=== PATIENT | female | born 1990 | race Caucasian/White ===

== ENCOUNTER 2017-09-18 20:12 | Emergency (ER) | payer MEDICAID ==
[~2017-09-18] VITALS: Ht 162.6 cm; Wt 33.0 kg
[2017-09-18 20:20] VITALS: BP 125/84
[2017-09-18 20:53] LABS: URINE HCG POSITIVE (NEG)
[2017-09-18 20:57] LABS: CLARITY,URINE CLEAR (Clear); COLOR,URINE YELLOW (Yellow); GLUCOSE, URINE NEGATIVE (Neg); KETONES,URINE NEGATIVE (Neg); LEUKOCYTE ESTERASE ,URINE NEGATIVE (Neg); NITRITES, URINE NEGATIVE (Neg); OCCULT BLOOD,URINE NEGATIVE (Neg); PH,URINE 5.5 (4.8-8.0); PROTEIN,URINE TRACE mg/dl (Neg); UROBILINOGEN,URINE 0.2 E.U/dL (0.2-1.0)
[2017-09-18 21:00] LABS: UA COLLECTION TYPE CLN CATCH MIDSTREAM
[2017-09-18 21:04] LABS: RBC,URINE 0-2 /HPF (0-2); WBC,URINE 0-4 /HPF (0-4)
[2017-09-18 21:05] LABS: BACTERIA,URINE FEW /HPF (Neg); SQUAMOUS EPITHELIAL CELL,UR FEW /LPF (FEW)
[2017-09-18 21:07] LABS: MUCUS STRANDS FEW /LPF (Neg)
[2017-09-18 21:50] LABS: BASOPHILS % (AUTO) 0.4 % (0-1); EOSINOPHILS # (AUTO) 0.3 X10'3 (0-0.9); EOSINOPHILS % (AUTO) 3.1 % (0-6); HEMATOCRIT 32.4 % (35.0-45.0); HEMOGLOBIN 10.9 g/dl (12.0-16.0); LYMPHOCYTES # (AUTO) 3.4 X10'3 (1.1-4.8); MEAN CORPUSCULAR HGB CONC 33.8 % (33.0-36.5); MEAN CORPUSCULAR VOLUME 88.6 FL (78-98); MEAN PLATELET VOLUME 7.5 FL (7.4-10.4); MONOCYTES # (AUTO) 0.6 X10'3 (0-0.9); MONOCYTES % (AUTO) 7.5 % (2-12); NEUTROPHILS # (AUTO) 4.2 X10'3 (1.8-7.7); PLATELET COUNT 223 X10'3 (140-440); RED BLOOD COUNT 3.66 X10'6 (4.20-5.60); RED CELL DISTRIBUTION WIDTH 13.7 % (11.5-14.5); WHITE BLOOD COUNT 8.5 X10'3 (4.5-11.0)
[2017-09-18] MEDS ORDERED: PERM60CR19 TP (22:45)
[2017-09-18] MEDS ORDERED: PREN-16 PO (22:45)
[2017-09-18] MEDS ORDERED: ONDA4TAB9 PO (22:48)
== END 2017-09-18 23:18 | disposition home or self-care (01) ==
LOC: ER 20:13
DX: O26.891 Other specified pregnancy related conditions, first trimester (principal); R10.9 Unspecified abdominal pain; F17.200 Nicotine dependence, unspecified, uncomplicated; F12.10 Cannabis abuse, uncomplicated; Z3A.01 Less than 8 weeks gestation of pregnancy
CPT/HCPCS: 36415; 76801; 81001; 81025; 84702; 85025; 86900; 86901; 99285

== ENCOUNTER 2022-01-06 03:23 | Emergency (ER) | payer MEDICAID ==
[~2022-01-06] VITALS: Ht 162.6 cm; Wt 54.5 kg
[~2022-01-06 03:23] MED LIST: NALO4SPR BOTHNARES; PREN-16 PO
[2022-01-06] MEDS ORDERED: NALO4SPR BOTHNARES (03:31)
[2022-01-06 04:45] LABS: CLARITY,URINE CLEAR (Clear); COLOR,URINE YELLOW (Yellow); GLUCOSE, URINE 100 mg/dl (Neg); KETONES,URINE NEGATIVE (Neg); LEUKOCYTE ESTERASE ,URINE TRACE (Neg); NITRITES, URINE NEGATIVE (Neg); OCCULT BLOOD,URINE NEGATIVE (Neg); PROTEIN,URINE 30 mg/dl (Neg); UROBILINOGEN,URINE 0.2 E.U/dL (0.2-1.0)
[2022-01-06 04:46] LABS: UA COLLECTION TYPE CLN CATCH MIDSTREAM; URINE HCG NEGATIVE (NEG)
[2022-01-06 04:52] LABS: BACTERIA,URINE 1+ /HPF (Neg); RBC,URINE 0-2 /HPF (0-2)
[2022-01-06 04:53] LABS: SQUAMOUS EPITHELIAL CELL,UR MODERATE /LPF (FEW)
[2022-01-06 04:57] LABS: URINE AMPHETAMINE SCREEN POSITIVE (Neg); URINE BARBITUATE SCREEN NEGATIVE (Neg); URINE BENZODIAZEPINES SCREEN NEGATIVE (Neg); URINE CANNABINOID SCREEN POSITIVE (Neg); URINE COCAINE SCREEN NEGATIVE (Neg); URINE METHADONE SCREEN NEGATIVE (Neg); URINE OPIATE SCREEN NEGATIVE (Neg); URINE PHENCYCLIDINE SCREEN NEGATIVE (Neg)
[2022-01-06 05:57] VITALS: BP 141/70
== END 2022-01-06 10:41 | disposition home or self-care (01) ==
LOC: ER 03:24
DX: T40.601A Poisoning by unspecified narcotics, accidental (unintentional), initial encounter (principal); R41.82 Altered mental status, unspecified; F20.9 Schizophrenia, unspecified; F12.10 Cannabis abuse, uncomplicated; Z79.899 Other long term (current) drug therapy; Y92.89 Other specified places as the place of occurrence of the external cause
CPT/HCPCS: 70450; 72125; 80305; 81001; 81025; 87088; 93005; 99285; C1758; A4615

== ENCOUNTER 2023-04-08 20:34 | Emergency (ER) | payer MEDICAID ==
[~2023-04-08] VITALS: Ht 160 cm; Wt 50.0 kg
--- NOTE | 2023-04-08 21:43 | NUR ---
PT REFUSED BLOOD DRAW, PT EDUCATED ON IMPORTANCE OF LAB TEST PT REFUSED.
[2023-04-08] MEDS ORDERED: NALO4SPR BOTHNARES (22:38)
--- NOTE | 2023-04-08 23:05 | NUR ---
provider aware of pt hr and pt still ok to d/c
[2023-04-08 23:06] VITALS: BP 135/94; PULSE 115; RESP 16; TEMP 99; O2SAT 100
== END 2023-04-08 23:04 | disposition home or self-care (01) ==
LOC: ER 20:36
DX: T40.601A Poisoning by unspecified narcotics, accidental (unintentional), initial encounter (principal); F20.9 Schizophrenia, unspecified; F17.210 Nicotine dependence, cigarettes, uncomplicated; F12.90 Cannabis use, unspecified, uncomplicated; Z72.89 Other problems related to lifestyle; Z79.899 Other long term (current) drug therapy; Y92.89 Other specified places as the place of occurrence of the external cause
CPT/HCPCS: 93005; 99283

== ENCOUNTER 2023-09-24 16:29 | Emergency (ER) | payer MEDICAID ==
[~2023-09-24] VITALS: Ht 162.6 cm; Wt 45.5 kg
[2023-09-24] MEDS: normal saline 1000ML IV soln IVB ONE (17:05)
[2023-09-24] MEDS ORDERED: NALO4SPR BOTHNARES (18:26)
[2023-09-24 20:40] VITALS: BP 110/73; PULSE 91; RESP 15; TEMP 98.8; O2SAT 99
== END 2023-09-24 20:45 | disposition home or self-care (01) ==
LOC: ER 16:29
DX: T40.601A Poisoning by unspecified narcotics, accidental (unintentional), initial encounter (principal); F12.90 Cannabis use, unspecified, uncomplicated; Z79.899 Other long term (current) drug therapy; Y92.89 Other specified places as the place of occurrence of the external cause
CPT/HCPCS: 96360; 99284; J7030

== ENCOUNTER 2023-10-05 12:21 | Emergency (ER) | payer MEDICAID | END 2023-10-05 14:14 | disposition left against medical advice (07) | LOC: ER 12:21 | DX: F11.20 Opioid dependence, uncomplicated (principal); Z53.21 Procedure and treatment not carried out due to patient leaving prior to being seen by health care provider ==

== ENCOUNTER 2023-12-10 22:12 | Emergency (ER) | payer MEDICAID ==
[~2023-12-10] VITALS: Ht 162.6 cm; Wt 52.0 kg
[2023-12-10] MEDS: normal saline 1000ML IV soln IVB ONE ×2 (22:44→23:34)
[2023-12-10 22:50] LABS: BASOPHILS # (AUTO) 0.1 X10'3 (0-0.2); EOSINOPHILS # (AUTO) 0.2 X10'3 (0-0.9); EOSINOPHILS % (AUTO) 3.5 % (0-6); HEMATOCRIT 26.6 % (35.0-45.0); HEMOGLOBIN 8.2 g/dl (12.0-16.0); LYMPHOCYTES # (AUTO) 3.4 X10'3 (1.1-4.8); LYMPHOCYTES % (AUTO) 48.8 % (21-51); MEAN CORPUSCULAR HGB CONC 30.6 g/dL (33.0-36.5); MEAN CORPUSCULAR VOLUME 68.4 FL (78-98); MEAN PLATELET VOLUME 7.2 FL (7.4-10.4); MONOCYTES # (AUTO) 0.5 X10'3 (0-0.9); MONOCYTES % (AUTO) 7.7 % (2-12); NEUTROPHILS # (AUTO) 2.7 X10'3 (1.8-7.7); PLATELET COUNT 330 X10'3 (140-440); RED BLOOD COUNT 3.89 X10'6 (4.20-5.60); RED CELL DISTRIBUTION WIDTH 19.8 % (11.5-14.5)
[2023-12-10 23:07] LABS: HCG SERUM QL NEGATIVE
[2023-12-10 23:09] LABS: ALBUMIN 3.2 G/DL (3.4-5.0); ANION GAP 6 (8-16); BLOOD UREA NITROGEN 13 MG/DL (7-18); BUN/CREATININE RATIO 11.1 (10.0-20.0); CALCIUM 8.9 MG/DL (8.5-10.1); CHLORIDE 103 MMOL/L (99-107); CREATININE 1.17 MG/DL (0.40-0.90); GLUCOSE 150 MG/DL (70-104); MAGNESIUM 1.9 MG/DL (1.5-2.4); POTASSIUM 3.3 MMOL/L (3.5-5.1); SODIUM 134 MMOL/L (135-145); TOTAL CARBON DIOXIDE 24.9 MMOL/L (24-32); eCRCL 56 ML/MIN; eGFR 53 ML/MIN
[2023-12-10 23:10] LABS: ETHANOL < 10 MG/DL (<10)
[2023-12-10 23:25] LABS: PLATELET ESTIMATE NORMAL
[2023-12-10 23:32] LABS: ANISOCYTOSIS 2+; ELLIPTOCYTES 1+; HYPOCHROMASIA 2+; MICROCYTOSIS 2+; POLYCHROMASIA FEW
[2023-12-10 23:33] LABS: SCHISTOCYTES FEW; TEAR DROP CELLS FEW
[2023-12-10] MEDS: potassium Cl 20 mEq SR tablet PO ONE (23:34)
[2023-12-10] MEDS: magnesium oxide 400mg tablet PO ONE (23:34)
[2023-12-11 00:08] VITALS: BP 128/92; PULSE 91; RESP 13; TEMP 98; O2SAT 100
[2023-12-11 00:17] LABS: BILIRUBIN,URINE NEGATIVE (Neg); CLARITY,URINE CLOUDY (Clear); COLOR,URINE YELLOW (Yellow); GLUCOSE, URINE NEGATIVE (Neg); KETONES,URINE NEGATIVE (Neg); LEUKOCYTE ESTERASE ,URINE NEGATIVE (Neg); NITRITES, URINE POSITIVE (Neg); OCCULT BLOOD,URINE LARGE (Neg); PROTEIN,URINE 100 mg/dl (Neg); UROBILINOGEN,URINE 0.2 E.U/dL (0.2-1.0)
[2023-12-11 00:18] LABS: UA COLLECTION TYPE NON-SPECIFIED
[2023-12-11 00:23] LABS: BACTERIA,URINE 4+ /HPF (Neg); MUCUS STRANDS NONE SEEN /LPF (Neg); SQUAMOUS EPITHELIAL CELL,UR MODERATE /LPF (FEW); WBC CLUMPS,URINE FEW /HPF (NEGATIVE)
[2023-12-11 00:41] LABS: URINE AMPHETAMINE SCREEN POSITIVE (Neg); URINE BARBITUATE SCREEN NEGATIVE (Neg); URINE BENZODIAZEPINES SCREEN NEGATIVE (Neg); URINE CANNABINOID SCREEN NEGATIVE (Neg); URINE COCAINE SCREEN NEGATIVE (Neg); URINE METHADONE SCREEN NEGATIVE (Neg); URINE OPIATE SCREEN NEGATIVE (Neg); URINE PHENCYCLIDINE SCREEN NEGATIVE (Neg)
== END 2023-12-11 00:10 | disposition home or self-care (01) ==
LOC: ER 22:12
DX: T40.411A Poisoning by fentanyl or fentanyl analogs, accidental (unintentional), initial encounter (principal); F15.10 Other stimulant abuse, uncomplicated; F12.90 Cannabis use, unspecified, uncomplicated; Z79.899 Other long term (current) drug therapy; Y92.89 Other specified places as the place of occurrence of the external cause
CPT/HCPCS: 36415; 80048; 80305; 80320; 81001; 82948; 83735; 84484; 84703; 85008; 85025; 87077; 87088; 87186; 93005; 96360; 99284; J7030; 81003

== ENCOUNTER → 2024-02-19 | Emergency (ER) | payer MEDICAID | END | disposition left against medical advice (07) | LOC: ER 13:17 | DX: T40.411A Poisoning by fentanyl or fentanyl analogs, accidental (unintentional), initial encounter (principal); F20.9 Schizophrenia, unspecified; F12.90 Cannabis use, unspecified, uncomplicated; Z79.899 Other long term (current) drug therapy; Y92.89 Other specified places as the place of occurrence of the external cause | CPT/HCPCS: 99283 ==

== ENCOUNTER 2024-08-01 18:50 | Emergency (ER) | payer MEDICAID ==
[~2024-08-01] VITALS: Ht 160 cm; Wt 43.2 kg
[2024-08-01 20:49] VITALS: BP 159/103; PULSE 111; RESP 18; TEMP 98.1; O2SAT 98
== END 2024-08-01 20:40 | disposition home or self-care (01) ==
LOC: ER 18:51
DX: T40.411A Poisoning by fentanyl or fentanyl analogs, accidental (unintentional), initial encounter (principal); F20.9 Schizophrenia, unspecified; F12.90 Cannabis use, unspecified, uncomplicated; Y92.89 Other specified places as the place of occurrence of the external cause
CPT/HCPCS: 99284

== ENCOUNTER 2024-12-15 04:12 | Emergency (ER) | payer MEDICAID ==
[~2024-12-15] VITALS: Ht 152.4 cm; Wt 48.0 kg
[2024-12-15 04:13] VITALS: TEMP 97.5
--- NOTE | 2024-12-15 05:15 | Physician Documentation ---
History of Present Illness ~ Chief Complaint: Overdose Stated Complaint: OD Time Seen by MD: 05:11 OK to notify your PCP?: Yes Primary Medical Doctor: None Source: patient, RN/MD, EMS, RN notes reviewed, EMS notes reviewed, old records Mode of Arrival: EMS, Ambulatory Exam Limitations: no limitations HPI 34 year old female seen in bed 06 presents to the emergency department via EMS for complaints of an overdose. EMS gave narcan 8mg en route to the hospital with a positive response. Per EMS patient overdosed on fentanyl. A bystander called 911 on patient and dumped water on them due to the patient being unresponsive. When asked about her symptoms patient complains of slight abdominal pain and unrelated scratches on her face. Medication Reconciliation Allergies: Coded Allergies: No Known Allergies (Unverified , 08/01/24) Scheduled Naloxone HCl (Narcan), 1 SPRAYS BOTHNARES ONCE Naloxone HCl (Narcan), 1 SPRAYS BOTHNARES ONCE Naloxone HCl (Narcan), 1 SPRAYS BOTHNARES ONCE Naloxone HCl (Narcan), 1 SPRAYS BOTHNARES ONCE Vit W-Ca,Fe,FA(<1 mg) ( Formula), 1 TAB PO DAILY Sulfamethoxazole/Trimethoprim (Bactrim Ds Tablet), 1 TAB PO Q12H Past Medical History Past Medical History: Cellulitis, Schizophrenia Past Surgical History: noncontributory Alcohol Use: Occasionally Drug Use: marijuana, heroin, other Lives with: Family Lives In: Home Review of Systems All Other Systems at this time: Reviewed and Negative ROS As stated above in the HPI, otherwise all systems are reviewed and negative. Physical Exam Vital Signs: RN Vital Signs have been reviewed: Yes, Temperature: 97.5, Source: Temporal, Heart Rate: 97, Respiratory Rate: 16, BP: 173/110, Pulse Oximetry: 100, Weight: 48.000 Oxygen Flow Rate: 0 Pulse Oximetry Reflects: adequate oxygenation Physical Exam General: [place] to body throughout with ulcerations to back and neck. Right ear has crustings. The patient is well developed, well nourished, nontoxic appearing and is in no acute distress. Skin: [place], warm and dry with no rashes. HEENT: Head was normocephalic and atraumatic. Eyes - pupils equal, round, reactive to light and accommodation. Extraocular movements were intact. Conjunctivae were nonicteric. Ears - bilateral tympanic membranes were normal. The mouth and oropharynx were clear with moist mucous membranes. There were no pharyngeal exudates or erythema. Neck: Supple and nontender. There was no jugular venous distention, lymphadenopathy, thyromegaly or masses. Chest: Clear to auscultation bilaterally without wheezes, rales or rhonchi. No accessory muscle use. No dullness to percussion. Heart: Rate regular and rhythmic. S1, S2. No murmurs. Palpation of the chest wall was normal. No rubs or thrills. Abdomen: Soft, nontender and nondistended. Positive bowel sounds. No guarding or rebound. No hepatosplenomegaly or palpable masses. Extremities: No cyanosis, clubbing or edema. The patient moves all extremities. Pulses were equal and symmetric. Neurologic: Cranial nerves II-XII were intact. Sensation was intact to light touch throughout. Motor strength was 5/5 in all four extremities. Deep tendon reflexes were intact in both upper and lower extremities. Psychologic: The patient was oriented to person, place and time. The patient demonstrated appropriate judgement and insight. Progress Results/Orders Reviewed/noted all lab results: Yes Results/Orders Completed Orders - RICARDO JAIN MD Rifampin Capsule (Rifampin Capsule) (12/15/24 05:20) Sulfamethox/Trimetho. Ds Tab (Septra Ds (12/15/24 05:20) Medications Received in ER Medications (Trade) Dose Ordered Sig/Danica Route PRN Reason Start Time Stop Time Status Last Admin Dose Admin (rifampin capsule) 300 mg STAT ONCE PO 12/15/24 05:20 12/15/24 05:31 DC 12/15/24 05:37 300 MG (Septra DS tab) 2 tab ONCE ONCE PO 12/15/24 05:20 12/15/24 05:21 DC 12/15/24 05:38 2 TAB Vital Signs 12/15/24 12/15/24 12/15/24 04:13 04:27 05:28 Temp 97.5 Pulse 97 102 Resp 16 16 14 B/P (MAP) 173/110 147/87 (107) Pulse Ox 100 98 O2 Flow Rate 0 0 Re-Evaluation Re-Evaluation : Re-Evaluation: Unchanged Progress Patient was seen and examined. Patient is given reassurance. Patient presents with a multiple pock castillo clearly homeless disheveled dirty with some crusty ears and discharge. Patient is supposedly overdose but she does not show any signs of any withdrawal symptoms making me wonder if she really did received Narcan or not. Nevertheless she has been observed for over an hour there was no respiratory depression or any other complaints. She is sleeping she was given food and was discharged home prior to that she was given rifampin and double dose Bactrim. She was given both bacteria suicidal and bacterial static antibiotics because of the probability of poor compliance. Patient was then discharged home. Medical Decision Making Additional info obtained from: old records Differential Dx:Considerations: Include: Alcohol abuse, Anxiety, Bipolar disorder, Conversion disorder, Delirium, Depression, Personality disorder, Schizophrenia, Substance abuse, Other Departure Time of Disposition: 05:18 Disposition: HOME / SELF CARE / HOMELESS Impression: Primary Impression: Polysubstance drug abuse Additional Impressions: Overdose of fentanyl Cellulitis of right ear Condition: Stable Discharge Instructions: Overdose, Adult Referrals: NO PRIMARY CARE PROVIDER (PCP) Prescriptions Sulfamethoxazole/Trimethoprim (Bactrim Ds Tablet) 800 Mg-160 Mg Tablet 1 TAB PO Q12H for 10 Days, #20 TAB Prov: RICARDO JAIN MD 12/15/24 Education Educated: Patient Educated regarding: diagnosis, treatment, prognosis, need for follow up Signature Scribe Signature: Scribed for Ricardo Jain MD by Allison Orellana . 12/15/24 05:19 Attestation: The note accurately reflects work and decisions made by me.Ricardo Jain MD 12/15/24 05:15 RICARDO JAIN MD Dec 15, 2024 05:15 ALLISON RAMIREZ Dec 15, 2024 05:19
[2024-12-15] MEDS ORDERED: SULF1TAB49 PO (05:17)
[2024-12-15 05:28] VITALS: BP 147/87; PULSE 102; RESP 14; O2SAT 98
[2024-12-15] MEDS: sulfamethoxazole/trimethoprim DS (800/160mg) tablet PO ONE (05:38)
== END 2024-12-15 05:51 | disposition home or self-care (01) ==
LOC: ER 04:13
DX: T40.411A Poisoning by fentanyl or fentanyl analogs, accidental (unintentional), initial encounter (principal); R10.9 Unspecified abdominal pain; H60.11 Cellulitis of right external ear; F19.10 Other psychoactive substance abuse, uncomplicated; F12.90 Cannabis use, unspecified, uncomplicated; F11.90 Opioid use, unspecified, uncomplicated; F20.9 Schizophrenia, unspecified; Z79.899 Other long term (current) drug therapy; Z72.89 Other problems related to lifestyle; Y92.89 Other specified places as the place of occurrence of the external cause
CPT/HCPCS: 99283

== ENCOUNTER 2024-12-20 16:19 | Emergency (ER) | payer MEDICAID ==
[~2024-12-20] VITALS: Ht 152.4 cm; Wt 48.0 kg
[~2024-12-20 16:19] MED LIST changes: +SULF1TAB49 PO
[2024-12-20 16:39] VITALS: BP 154/104; PULSE 119; RESP 16; O2SAT 100
--- NOTE | 2024-12-20 17:22 | Physician Documentation ---
History of Present Illness ~ Chief Complaint: Overdose Stated Complaint: OVERDOSE Time Seen by MD: 16:47 Primary Medical Doctor: None Mode of Arrival: EMS HPI EMS patient was brought in via ambulance after being found by [employer]. Reportedly a bystander saw that the patient was on responsive and administered 4 mg of Narcan in fire arrived they bag the patient and administered an additional 4 mg patient became alert and oriented at that time. Patient currently denies any drug use and denies any fentanyl use. She is afraid of needles and is unwilling to allow medical treatment at this time. CPR was not initiated according to EMS currently protecting airway Medication Reconciliation Allergies: Coded Allergies: No Known Allergies (Unverified , 08/01/24) Scheduled Naloxone HCl (Narcan), 1 SPRAYS BOTHNARES ONCE Naloxone HCl (Narcan), 1 SPRAYS BOTHNARES ONCE Naloxone HCl (Narcan), 1 SPRAYS BOTHNARES ONCE Naloxone HCl (Narcan), 1 SPRAYS BOTHNARES ONCE Vit W-Ca,Fe,FA(<1 mg) ( Formula), 1 TAB PO DAILY Sulfamethoxazole/Trimethoprim (Bactrim Ds Tablet), 1 TAB PO Q12H Past Medical History Past Medical History: Cellulitis, Schizophrenia Past Surgical History: noncontributory Alcohol Use: Occasionally Drug Use: marijuana, heroin, other Lives with: Family Lives In: Home Review of Systems All Other Systems at this time: Reviewed and Negative Physical Exam Vital Signs: Temperature: 97.7, Source: Oral, Heart Rate: 119, Respiratory Rate: 16, BP: 154/104, Pulse Oximetry: 100, Weight: 48.000 Oxygen Flow Rate: 0 Physical Exam General: Alert, no apparent distress. HEENT: PERRL, EOMI, no injection, moist mucous membranes. Respiratory: Lungs clear, no respiratory distress. Cardiovascular: Regular rate and rhythm, no murmurs. Neurologic: Oriented x4. Psychiatric: Normal mood and affect. Skin: Normal color, warm and dry. No edema, no ecchymosis. Progress Results/Orders Results/Orders Completed Orders - PARESH HOPE NP Electrocardiogram (12/20/24 ) Vital Signs 12/20/24 12/20/24 12/20/24 16:32 16:37 16:39 Temp 97.7 97.7 Pulse 113 119 Resp 16 16 B/P (MAP) 154/104 154/104 (121) Pulse Ox 100 100 O2 Flow Rate 0 0 Medical Decision Making Findings Patient has been uncooperative from the point of arrival to the ED. he will not to labs being drawn she will not allow an IV and does not want to cooperate with any medical care. Does appear alert and oriented. Completely denies any drug use however there was a confirm positive of effect of Narcan he remains agitated and unwilling to cooperate. Going to monitor her for another 30 minutes to allo w for full metabolism motion of any underlying opioids Patient has remained alert and not somnolent throughout her whole stay in the ED. asked her she is ready to be discharged and she verbally said , "yes" Differential Dx:Considerations: Include: Alcohol abuse, Anxiety, Bipolar disorder, Conversion disorder, Delirium, Depression, Drug Overdose-Accidental, Drug Overdose-Intentional, Encephalopathy, Hallucinations, Homicidal, Liver failure, Panic disorder, Personality disorder, Renal failure, Respiratory failure, Schizophrenia, Substance abuse, Suicidal attempt, Suidical gesture, Other Departure Disposition: 01 HOME / SELF CARE / HOMELESS Impression: Primary Impression: Overdose of fentanyl Condition: Improved Discharge Instructions: Opioid Overdose Additional Instructions: Please stop using fentanyl. it is going to kill you. Referrals: NO PRIMARY CARE PROVIDER (PCP) Education Educated: Patient Signature Scribe Signature: g Attestation: Scribed for Paresh Hope Computer Analyst Supervisor by Paresh Campos NP . 12/20/24 17:22 PARESH HOPE NP Dec 20, 2024 17:22
--- NOTE | 2024-12-20 17:40 | ELECTROCARDIOGRAPH REPORT ---
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
[2024-12-20 17:55] VITALS: TEMP 97.7
== END 2024-12-20 18:03 | disposition home or self-care (01) ==
LOC: ER 16:19
DX: T40.411A Poisoning by fentanyl or fentanyl analogs, accidental (unintentional), initial encounter (principal); R40.4 Transient alteration of awareness; F20.9 Schizophrenia, unspecified; Y92.89 Other specified places as the place of occurrence of the external cause
CPT/HCPCS: 93005; 99283